=== PATIENT | male | born 1960 | race Caucasian/White ===

== ENCOUNTER 2020-07-28 19:44 | Emergency (ER) | payer OTHER ==
[~2020-07-28] VITALS: Ht 188 cm; Wt 119.8 kg
[2020-07-28 19:50] VITALS: BP 147/65
--- NOTE | 2020-07-28 20:05 | PHYS DOC ---
Adult General Chief Complaint Chief Complaint: CHEST PAIN HPI HPI Patient is a 60-year-old male with a past medical history significant for hypertension and hyperlipidemia who presents to the emergency department with a chief complaint of right-sided upper chest pain, 2 out of 10, sharp in nature with no radiation that started about 1 PM earlier in the day. States he called a family member who is a doctor, and was directed to the emergency department because there is a family history of VTE. Denies any dyspnea on exertion, orthopnea, PND or edema. Denies any recent travel, illnesses, fevers, diaphoresis cold/flu/Covid symptoms, abdominal pain, nausea, vomiting, dysuria, hematuria or blood in the stool. Review of Systems Review of Systems Review of systems otherwise unremarkable except noted in HPI Physical Exam Physical Exam Constitutional: Well developed, well nourished, no acute distress, non-toxic appearance. [] HENT: Normocephalic, atraumatic, bilateral external ears normal, oropharynx moist, no oral exudates, nose normal. [] Eyes: conjunctiva normal, no discharge. [] Neck: Normal range of motion, no tenderness, supple, no stridor. [] Cardiovascular:Heart rate regular rhythm, no murmur [] Lungs & Thorax: Bilateral breath sounds clear to auscultation [] Abdomen: soft, no tenderness, no masses, no pulsatile masses. [] Skin: Warm, dry, no erythema, no rash. [] Back: No tenderness, no CVA tenderness. [] Extremities: No tenderness, no cyanosis, no clubbing, ROM intact, no edema. [] Neurologic: Alert and oriented X 3, normal motor function, normal sensory function, no focal deficits noted. [] Psychologic: Affect normal, judgement normal, mood normal. [] EKG EKG EKG with a rate of 88, QRS of 94, QTc of 434, no STEMI. Abnormal EKG however with a IA interval of 186 and left for axis deviation [] Radiology/Procedures Radiology/Procedures [] Heart Score C/O Chest Pain: Yes HEART Score for Chest Pain: HEART Score for Chest Pain Response (Comments) Value History Slighlty/Non-Suspicious 0 ECG Nonspecific Repolarizatio 1 Age >45 - < 65 1 Risk Factors 1 or 2 Risk Factors 1 Troponin < Normal Limit 0 Total 3 Risk Factors: Risk Factors: DM, Current or recent (<one month) smoker, HTN, HLP, family history of CAD, obesity. Risk Scores: Risk Factors: DM, Current or recent (<one month) smoker, HTN, HLP, family history of CAD, obesity. Course & Med Decision Making Course & Med Decision Making Patient is a 60-year-old male who presents with chest pain that started 7 hours ago Vital signs not concerning. Physical exam noted above. EKG noted above with no STEMI. Troponin normal. Heart score of 3. Low risk Wells. D-dimer negative. Chest x-ray not concerning. Discussed all findings with patient recommended follow-up in the morning with primary care physician to set up a follow-up appointment later this week to discuss need for further cardiac evaluation and treatment including possible outpatient stress test. Gave strict return precautions to the ED. Patient grateful, verbalized understanding and agreed with plan of discharge. [] Dragon Disclaimer Dragon Disclaimer This electronic medical record was generated, in whole or in part, using a voice recognition dictation system. Departure Departure: Impression: Primary Impression: Chest pain Disposition: 01 DC HOME SELF CARE/HOMELESS Condition: GOOD Referrals: CARLIE KRAFT DO (PCP) Patient Instructions: Chest Pain (Nonspecific) Additional Instructions: Please read all the attached information. Please call your primary care physician first thing in the morning to discuss your ED visit and set up a follow-up visit in the next week to discuss need for further cardiac evaluation including outpatient stress test. Please come back to the ED with new or concerning symptoms. KRISHNA BARRERA MD Jul 28, 2020 20:05
[2020-07-28] MEDS: ASPIRIN CHEWABLE 81 MG TABLET. PO ONE (20:16)
[2020-07-28 20:43] LABS: BASO # 0.1 x10^3/uL (0.0-0.2); BASO % 1 % (0-3); EOS # 0.3 x10^3/uL (0.0-0.7); EOS % 4 % (0-3); HEMOGLOBIN 14.8 g/dL (13.0-17.5); LYMPH # 2.4 x10^3/uL (1.0-4.8); LYMPH % 30 % (24-48); MEAN CORPUSCULAR HEMOGLOBIN 30 pg (25-35); MEAN CORPUSCULAR HGB CONC 34 g/dL (31-37); MEAN CORPUSCULAR VOLUME 87 fL (79-100); MONO # 0.7 x10^3/uL (0.0-1.1); MONO % 8 % (0-9); NEUT # 4.7 x10^3uL (1.8-7.7); NEUT % 58 % (31-73); PLATELET COUNT 181 x10^3/uL (140-400); RED BLOOD COUNT 4.93 x10^6/uL (4.30-5.70); RED CELL DISTRIBUTION WIDTH 13.7 % (11.5-14.5); WHITE BLOOD COUNT 8.1 x10^3/uL (4.0-11.0)
[2020-07-28 20:48] LABS: CALCIUM 9.2 mg/dL (8.5-10.1); CREATININE 1.2 mg/dL (0.7-1.3); POTASSIUM 3.9 mmol/L (3.5-5.1)
--- NOTE | 2020-07-28 21:09 | RAD ---
INDICATION: Reason: chest pain / Spl. Instructions: / History: COMPARISON: None. FINDINGS: Single view of chest obtained. Hypoexpanded examination. Cardiac silhouette is near the upper limits of normal in size. Degenerative changes of the shoulders partially seen IMPRESSION: * Hypoexpanded exam without definite focal airspace consolidation. Electronically signed by: Justin Lepe MD (07/28/2020 9:07 PM) [id number]
--- NOTE | 2020-07-29 07:01 | EKG ---
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
== END 2020-07-28 21:35 | disposition home or self-care (01) ==
LOC: ER 19:44
DX: R07.9 Chest pain, unspecified (principal); I10 Essential (primary) hypertension; E78.5 Hyperlipidemia, unspecified
CPT/HCPCS: 36415; 71045; 80048; 84484; 85025; 85379; 85610; 85730; 93005; 99285-25